=== PATIENT | female | born 1950 | race Caucasian/White ===

== ENCOUNTER → 2018-01-10 | Outpatient (CLI) | payer MEDICARE, OTHER | LOC: BICMRI 16:03 | PROVIDERS: ATTEND Anesthesiology Pain Medicine | DX: M51.16 Intervertebral disc disorders with radiculopathy, lumbar region (principal); M47.26 Other spondylosis with radiculopathy, lumbar region; M48.061 Spinal stenosis, lumbar region without neurogenic claudication; M99.83 Other biomechanical lesions of lumbar region; M47.897 Other spondylosis, lumbosacral region | CPT/HCPCS: 72100; 72148 ==

== ENCOUNTER 2019-06-27 09:22 | Outpatient (CLI) | payer MEDICARE, OTHER ==
--- NOTE | 2019-06-27 12:09 | MRI ---
MRI LUMBAR SPINE WITHOUT CONTRAST: Date: 06/27/19 INDICATION: Spinal stenosis. Low back pain. Comparison made to MRI lumbar spine dated 01/10/18. FINDINGS: Moderate degenerative changes of the lumbar spine. There is a scoliotic curvature with convexity to t he right with apex at L3-4. This is measured at 25 degrees in the coronal plane. Degenerative disc ch anges are seen throughout the lumbar spine. Loss of disc space is prominent at L1-2 and L2-3. There i s lateral compression and osteophytes of these vertebra due to scoliotic curvature. At L1-2, mild diffuse disc bulge centrally flattens the thecal sac. Prominent facet hypertrophy. Mild to moderate central canal stenosis. Severe left foraminal stenosis and mild right foraminal stenosis . At L2-3, diffuse disc bulge flattens the thecal sac. Facet hypertrophy is prominent. There is posteri or epidural fat. These changes compress the thecal sac resulting in moderate to severe central canal stenosis. Severe left foraminal stenosis and moderate right foraminal stenosis. At L3-4, there is a prominent diffuse disc bulge severely flattening the thecal sac. Prominent facet and ligamentous hypertrophy. Severe central canal stenosis at this level. Bilateral foraminal stenosi s. At L4-5, mild diffuse disc bulge. Prominent facet hypertrophy. Mild to moderate central canal stenosi s. Severe right foraminal stenosis. At L5-S1, mild disc bulge. Facet hypertrophy. Mild central canal stenosis. Mild left foraminal stenos is. These lumbar degenerative findings do not appear significantly changed from the MRI of December 2017. There are left renal cystic lesions which are stable when compared to 2018. IMPRESSION: Multilevel degenerative disc changes with central canal and foraminal stenosis at multiple levels as described above. Central canal stenosis is most severe at L3-4. POS: [facility]
== END 2019-06-27 09:23 | disposition home or self-care (01) ==
LOC: BICMRI 09:22
PROVIDERS: ATTEND Nurse Practitioner Family
DX: M48.062 Spinal stenosis, lumbar region with neurogenic claudication (principal); M51.36 Other intervertebral disc degeneration, lumbar region
CPT/HCPCS: 72148

== ENCOUNTER 2019-09-22 05:45 | Day surgery (SDC) | payer MEDICARE, OTHER ==
[2019-09-19 12:23] VITALS: BMI 29.2
[2019-09-22] MEDS ORDERED: Lidocaine 1% w/Epinephrine 1:100K 20 ML VIAL ONE (06:54)
[2019-09-22] MEDS ORDERED: Thrombin 5000 UNITS/5 ML VIAL ONE (06:54)
[2019-09-22] MEDS ORDERED: Bupivacaine PF 0.5% 30 ML VIAL ONE (06:54)
--- NOTE | 2019-09-22 07:21 | HP ---
HISTORY OF PRESENT ILLNESS: Ms. Oscar is a very pleasant 69-year-old woman, here today to discuss severe lower back pain that favors the left more than the right. She also reports bilateral radicular pain, so much like lower back pain, left is far worse than right. She endorses numbness in the same distribution , the right is worse than the left. She has had these pains for several years. However, in the last 6 months, the pains have worsened significantly. She has been seeing Dr. Morrison for many years now as well, and epidural steroid injections have provided great relief until the last few months. This prompted an MRI and referral to our office. MRI from [place] reveals severe central canal stenosis at L3-L4 that would allow for the bulk of her symptoms. PHYSICAL EXAMINATION: NEUROLOGIC: She is alert and oriented x3. Gait is slowed and antalgic. Lower extremity motor exam is normal. Normal straight leg raise. There is notable sensory disturbance to both anterior thighs, right greater than left. PAST MEDICAL HISTORY: Hypercholesterolemia, chronic pain syndrome, arthritis, allergies, and hypertension. PAST SURGICAL HISTORY: Lumbar decompression, partial hysterectomy. CURRENT MEDICATIONS: 1. . 2. Metronidazole. 3. Metoprolol. 4. Lyrica. 5. Etodolac. 6. Crestor. 7. Lisinopril. 8. Tramadol. ALLERGIES: TO PENICILLIN. ASSESSMENT: Lumbar spinal stenosis. PLAN: Dr. Rodriguez met with the patient, reviewed imaging, advocated for an L3-L4 decompression. He explained to the patient the risks, benefits, and alternatives to the procedure. The patient expressed understanding and elected to move forward with surgery as discussed. I do believe the patient is mentally competent and capable of making medical decisions for herself. We will move forward with surgery as planned. Job ID: [id number]
[2019-09-22] MEDS ORDERED: Fentanyl 100 MCG/2 ML VIAL ONE (08:10)
[2019-09-22] MEDS ORDERED: Clindamycin/D5W 900 mg/50 ml Premix Bag ONE (08:30)
[2019-09-22] MEDS ORDERED: Levofloxacin 500 mg/D5W 100 ml Premix Bag ONE (08:30)
[2019-09-22] MEDS ORDERED: Phenylephrine HCL 10 MG/ML VIAL ONE (08:44)
[2019-09-22] MEDS ORDERED: Meperidine HCl/PF 25 MG/ML VIAL SLOW IVP PRN (09:32)
[2019-09-22] MEDS ORDERED: HYDROmorphone 2 MG/ML VIAL SLOW IVP PRN (09:32)
[2019-09-22] MEDS ORDERED: Ondansetron HCl/PF 4 MG/2 ML Vial IVP PRN (09:32)
[2019-09-22] MEDS ORDERED: Promethazine HCl 25 MG/ML VIAL SLOW IVP PRN (09:32)
[2019-09-22] MEDS ORDERED: SUGAMMADEX SODIUM 500 MG/5 ML VIAL ONE (09:50)
[2019-09-22] MEDS ORDERED: SUGAMMADEX SODIUM 200 MG/2 ML VIAL ONE (09:50)
[2019-09-22] MEDS ORDERED: Rocuronium Bromide 10 MG/ML (10ML VIAL) ONE (10:04)
[2019-09-22] MEDS ORDERED: ePHEDrine/0.9% NaCl/PF SYRINGE 50 mg/10 ml ONE (10:04)
[2019-09-22] MEDS ORDERED: Ondansetron PF 4 MG/2 ML Vial ONE (10:04)
[2019-09-22] MEDS ORDERED: Dexamethasone 20 MG/5 ML VIAL ONE (10:04)
[2019-09-22] MEDS ORDERED: PROPOFOL 200 MG/20 ML VIAL ONE (10:04)
[2019-09-22] MEDS ORDERED: PHENYLEPHRINE-NS 100 MCG/ML 10 ML SYRINGE ONE (10:04)
[2019-09-22] MEDS ORDERED: Lidocaine 1% PF 5 ML VIAL ONE (10:04)
[2019-09-22] MEDS ORDERED: Naloxone HCl 0.4 mg/ml Vial ONE (10:58)
--- NOTE | 2019-09-22 15:04 | OP ---
DATE OF PROCEDURE: 09/22/2019 SHELL WORKER: Ramiro Kline PA-C INDICATION: Pain. DIAGNOSIS: Lumbar stenosis. PROCEDURE PERFORMED: L3-L4 lumbar decompression. ANESTHESIA: General. DESCRIPTION OF PROCEDURE: The patient was brought into the operating room and placed under general anesthesia. She was flipped from the supine to prone position on the operating room table. A linear incision was planned over the L3-L4 segment. After prepping and draping and after an appropriate operative pause, the incision was created. The soft tissues were swept away from midline. A self-retaining retractor was placed in the wound for optimal exposure. After confirming appropriate level with C-arm fluoroscopy, high-speed cutting drill bit as well as 2, 3, and 4 mm Kerrisons were used to complete the laminectomy along the inferior aspect of L3 and the superior aspect of L4. The laminectomy was extended laterally to encompass the medial aspect of the facet joints in order to adequately decompress the lateral recesses. After completing the decompression, the wound was irrigated. Hemostasis was maintained throughout. The wound was then closed in anatomic layers, and a pressure dressing was applied. There were no known procedural complications. Job ID: [id number]
--- NOTE | 2019-09-22 23:30 | EKG ---
Test Reason : PREOP Blood Pressure : / mmHG Vent. Rate : 061 BPM Atrial Rate : 061 BPM P-R Int : 190 ms QRS Dur : 090 ms QT Int : 434 ms P-R-T Axes : 058 054 041 degrees QTc Int : 436 ms Normal sinus rhythm Normal ECG No previous ECGs available Confirmed by Karmen JUAREZ ([id number]) on 09/22/2019 11:29:44 PM Referred By: MARGARITA Confirmed By:Karmen JUAREZ
== END 2019-09-22 14:30 | disposition home or self-care (01) ==
LOC: SDC 05:45
PROVIDERS: ATTEND Neurological Surgery
PROC: 01NB0ZZ Release Lumbar Nerve, Open Approach (ICD-10-PCS; principal; 2019-09-22)
DX: M48.062 Spinal stenosis, lumbar region with neurogenic claudication (principal); M54.10 Radiculopathy, site unspecified; I10 Essential (primary) hypertension; E78.5 Hyperlipidemia, unspecified; G89.4 Chronic pain syndrome; F17.200 Nicotine dependence, unspecified, uncomplicated; E78.00 Pure hypercholesterolemia, unspecified; M19.90 Unspecified osteoarthritis, unspecified site; Z79.899 Other long term (current) drug therapy; Z88.0 Allergy status to penicillin; Z98.890 Other specified postprocedural states
CPT/HCPCS: 76000; 93005; 93010; J1100; J1956; J2001; J2310; J2370; J2405; J2704; J3010; J3490; S0020

== ENCOUNTER 2022-06-08 11:14 | Outpatient (CLI) | payer MEDICARE | END 2022-06-08 11:15 | disposition home or self-care (01) | LOC: SCSMRI 11:14 | PROVIDERS: ATTEND Nurse Practitioner Family | DX: M48.062 Spinal stenosis, lumbar region with neurogenic claudication (principal); M47.816 Spondylosis without myelopathy or radiculopathy, lumbar region; M41.9 Scoliosis, unspecified; M43.5X6 Other recurrent vertebral dislocation, lumbar region | CPT/HCPCS: 72110; 72158; 82565 ==

== ENCOUNTER 2024-03-23 14:12 | Observation (INO) | payer MEDICARE ==
[2024-03-23 16:54] VITALS: BMI 28.3
[2024-03-23] MEDS ORDERED: Acetaminophen 325 MG TAB PO PRN (17:32)
[2024-03-23] MEDS ORDERED: Acetaminophen 650 MG Suppository PR PRN (17:32)
[2024-03-23] MEDS: Ondansetron PF 4 MG/2 ML Vial IVP SCH (17:51)
[2024-03-23] MEDS ORDERED: Electrolyte Replacement Protocol 1 EACH FS SCH (18:00)
[2024-03-23 18:49] LABS: #Basophils 0.06 10x3/uL (0.0-0.2); #Eosinphils Less than 0.03 10x3/uL (0.0-0.7); %Basophils 0.5 % (0.0-1.0); %Eosinophils 0.1 % (0.0-10.0); %Lymphocytes 9.3 % (21.0-51.0); %Monocytes 9.9 % (0.0-10.0); %Neutrophils 79.9 % (42.0-75.0); Hematocrit 29.2 % (36.0-47.0); Hemoglobin 9.3 g/dL (12.0-16.0); Mean Corpuscular HGB CONC 31.8 g/dL (32.0-36.0); Mean Corpuscular Hemoglobin 25.9 pg (27.0-31.0); Mean Corpuscular Volume 81.3 fL (78.0-98.0); Mean Platelet Volume 10.2 fL (7.4-10.4); Platelet Count 414 10x3/uL (130-400); RBC Distribution Width 15.6 % (11.5-14.5); Red Blood Cell (RBC) Count 3.59 mill/uL (4.20-5.40)
[2024-03-23 19:07] LABS: ALT (SGPT) 11 U/L (8-55); AST (SGOT) 18 U/L (5-34); Albumin 2.5 g/dL (3.4-4.8); Alkaline Phosphatase 74 U/L (40-110); Anion Gap 19 mmol/L (10-20); BUN (Urea Nitrogen) 29 mg/dL (9.8-20.1); Bilirubin, Total 0.4 mg/dL (0.2-1.2); Calc. Creatinine Clearance 35 mL/min (70-130); Calcium 9.6 mg/dL (7.8-10.44); Carbon Dioxide 29 mmol/L (23-31); Chloride 94 mmol/L (98-107); Estimated GFR 37; Globulin 3.4 g/dL (2.4-3.5); Glucose 102 mg/dL (83-110); Magnesium 1.7 mg/dL (1.6-2.6); Protein, Total 5.9 g/dL (5.8-8.1); Sodium 139 mmol/L (136-145)
[2024-03-23 19:10] LABS: Troponin I 0.078 ng/mL (< 0.028)
[2024-03-23] MEDS: Pantoprazole 40 MG VIAL IVP SCH (20:34)
[2024-03-23] MEDS: Promethazine HCl 25 MG in Sodium Chloride 0.9% 50 ML IVPB PRN (21:18)
[2024-03-23] MEDS ORDERED: Potassium Chloride 20 MEQ in Premix 1 BAG IVPB SCH (22:00)
[2024-03-23] MEDS ORDERED: Potassium Chloride 20 MEQ TAB PO SCH (22:00)
[2024-03-23] MEDS: Magnesium 2 GM/50 ML(in water) 2 GM in Premix 1 BAG IVPB SCH (22:08)
[2024-03-23] MEDS: Potassium Chloride 20 MEQ in Premix 1 BAG IVPB SCH (23:16)
[2024-03-24 05:05] LABS: #Basophils 0.06 10x3/uL (0.0-0.2); #Eosinphils Less than 0.03 10x3/uL (0.0-0.7); %Basophils 0.5 % (0.0-1.0); %Lymphocytes 9.8 % (21.0-51.0); %Neutrophils 77.2 % (42.0-75.0); Hematocrit 30.6 % (36.0-47.0); Hemoglobin 8.9 g/dL (12.0-16.0); Mean Corpuscular HGB CONC 29.1 g/dL (32.0-36.0); Mean Corpuscular Hemoglobin 25.6 pg (27.0-31.0); Mean Corpuscular Volume 87.9 fL (78.0-98.0); Platelet Count 433 10x3/uL (130-400); Red Blood Cell (RBC) Count 3.48 mill/uL (4.20-5.40)
[2024-03-24 05:46] LABS: Anion Gap 17 mmol/L (10-20); BUN (Urea Nitrogen) 30 mg/dL (9.8-20.1); Calc. Creatinine Clearance 39 mL/min (70-130); Calcium 8.8 mg/dL (7.8-10.44); Carbon Dioxide 20 mmol/L (23-31); Chloride 101 mmol/L (98-107); Estimated GFR 42; Glucose 80 mg/dL (83-110); Sodium 134 mmol/L (136-145)
[2024-03-24] MEDS ORDERED: Ondansetron PF 4 MG/2 ML Vial IVP PRN (08:09)
[2024-03-24] MEDS ORDERED: traMADol HCl 50 MG TAB PO PRN (08:10)
[2024-03-24] MEDS: Lactated Ringer's 1,000 ML IV SCH (08:28)
[2024-03-24] MEDS: Pantoprazole 40 MG VIAL IVP SCH (08:30)
[2024-03-24] MEDS: Metoprolol Tartrate 100 MG TAB PO SCH (09:02)
[2024-03-24] MEDS: Pregabalin 50 MG CAP PO SCH (09:03)
[2024-03-24] MEDS: Enoxaparin 30 MG (0.3 mL) SYRINGE SC SCH (09:03)
[2024-03-24 11:19] VITALS: BMI 28.3
[2024-03-24 20:35] VITALS: BP 100/64; TEMP 99.3
[2024-03-24] MEDS ORDERED: Rosuvastatin 10 MG TAB PO SCH (21:00)
== END 2024-03-24 20:30 | disposition home or self-care (01) ==
LOC: 2SW 16:17
PROVIDERS: ADMIT Family Medicine; ATTEND Internal Medicine
DX: R42 Dizziness and giddiness (principal); I12.9 Hypertensive chronic kidney disease with stage 1 through stage 4 chronic kidney disease, or unspecified chronic kidney disease; N18.9 Chronic kidney disease, unspecified; D63.1 Anemia in chronic kidney disease; N17.9 Acute kidney failure, unspecified; I21.4 Non-ST elevation (NSTEMI) myocardial infarction; E86.0 Dehydration; E87.6 Hypokalemia; Z88.0 Allergy status to penicillin; Z79.899 Other long term (current) drug therapy
CPT/HCPCS: 76705; 80048; 80053; 83690; 83735; 83880; 84484; 85025 ×2; 96372; 96374; 96375; 96376; G0378 ×2; J1650; J2405; J2470 ×2; J2550; J3475; J3480 ×2; J7120; 36415